=== PATIENT | male | born 1965 | race African-American/Black ===

== ENCOUNTER 2018-04-13 06:44 | Day surgery (SDC) | payer OTHER ==
[~2018-04-13 06:44] MED LIST: ACETAMINOPHEN 1,000 MG/100 ML BTL IV ONE; CEFAZOLIN 2 Gram 2 GM/50 ML BAG IVPB ONE
[2018-04-13] MEDS ORDERED: ROCURONIUM BROMIDE 50MG/5ML VIAL IV ONE (06:45)
[2018-04-13] MEDS ORDERED: DEXAMETHASONE 4 MG/ML 1ML VIAL IVP ONE (06:45)
[2018-04-13] MEDS ORDERED: BUPIVACAINE 0.5% W/EPI MPF 30 ML VIAL IVP ONE (06:45)
[2018-04-13] MEDS ORDERED: KETOROLAC 30 MG/ML VIAL IVP ONE (06:45)
[2018-04-13] MEDS ORDERED: SEVOFLURANE 250 ML INH ONE (06:45)
[2018-04-13] MEDS ORDERED: LIDOCAINE 2% MDV (20MG/ML) 20ML VIAL IV ONE (06:45)
[2018-04-13] MEDS ORDERED: PROPOFOL 10 MG/ML VIAL IV ONE (06:45)
[2018-04-13] MEDS ORDERED: HYDROCODONE/APAP 7.5/325MG TABLET PO ONE (06:45)
[2018-04-13] MEDS ORDERED: MIDAZOLAM HCL 2MG/2ML VIAL IV ONE (06:45)
[2018-04-13] MEDS ORDERED: MORPHINE SULFATE PF 10MG/10ML VIAL IV ONE (06:45)
[2018-04-13] MEDS ORDERED: FENTANYL PF 100MCG/2ML VIAL IV ONE (06:45)
[2018-04-13] MEDS ORDERED: BUPIVACAINE LIPOSOME/PF 133MG/10ML VIAL IV ONE (06:45)
[2018-04-13] MEDS ORDERED: ONDANSETRON HCL IV 4 MG/2 ML VIAL IVP ONE (06:45)
[2018-04-13] MEDS ORDERED: HYDROMORPHONE HCL 2 MG/ML VIAL IV ONE (06:45)
[2018-04-13] MEDS ORDERED: METHYLPREDNISOLONE 40MG/VIAL IM ONE (06:45)
[2018-04-13] MEDS ORDERED: SUCCINYLCHOLINE 20 MG/ML 10ML IVP ONE (06:45)
--- NOTE | 2018-04-13 12:25 | Operative Note ---
DATE OF SURGERY: 04/13/2018 PREOPERATIVE DIAGNOSIS: TORN ROTATOR CUFF ON THE LEFT WITH IMPINGEMENT. POSTOPERATIVE DIAGNOSES: 1. 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 2. SYNOVITIS OF THE LEFT SHOULDER. 3. SEVERE EXTERNAL IMPINGEMENT LEFT SHOULDER. 4. ARTHROSIS LEFT DISTAL CLAVICLE. PROCEDURE: 1. REPAIR OF A CHRONICALLY TORN ROTATOR CUFF TENDON, OPEN. 2. LEFT SHOULDER ARTHROSCOPY WITH SYNOVECTOMY. 3. LEFT SHOULDER OPEN ACROMIOPLASTY, CA LIGAMENT RESECTION, SUBACROMIAL BURSECTOMY. 4. LEFT SHOULDER DISTAL CLAVICLE RESECTION. STAFF SURGEON: MARY FLORES M.D. ANESTHESIA: GENERAL. PREPARATION: CHLORAPREP. INDIVIDUAL CONSIDERATIONS: NONE. PROCEDURE: The patient was taken to the Operating Room and placed supine on the operating table. He had a successful induction with general anesthetic. He was then placed in a semi-seated beach chair position and his left arm was prepped and draped in the usual fashion. Examination under anesthesia showed no instability. The patient had a posterior portal identified for arthroscopy. The skin was infiltrated with 0.5% Marcaine with Epinephrine prior. An #18 gauge spinal needle was then placed in the joint and the joint was inflated with normal saline with a 60 mL syringe. A stab wound was made and a blunt tip trocar for the scope was placed in the joint and the joint was inflated with normal saline. An anterior accessory portal was made just inferior to the intact long head of the biceps tendon in a retrograde fashion with a Wissinger santosh and the joint was irrigated out. The patient had synovitis basically underneath the biceps. This was debrided out. There was obvious tear of the supraspinatus and even extending into the infraspinatus. The glenohumeral joint was normal and no loose bodies were seen inferiorly. The long head was intact. The subscapularis was intact. After irrigation, the portals were closed with ryan. The patient had an anterior approach to the subacromial space and distal clavicle. The skin was again infiltrated with 0.5% Marcaine with Epinephrine prior. Sharp dissection carried down through the skin and subcutaneous tissues. Small veins were coagulated with a Bovie. An anterior deltoid interval was developed. Care was taken not to split the deltoid more than about 4 cm distal to the anterior tip of the acromion to prevent injury to the axillary nerve. Once in the subacromial space, there was a large conrad of fluid consistent with his tear. The patient had a downsloping acromion with spurs anteriorly and spurs at the AC joint. The deltoid was then detached anteriorly and subperiosteally off the anterior aspect of the acromion, over the top of the intact CA ligament, and off the anterior aspect of the degenerated distal clavicle. The CA ligament was resected with a Bovie. The distal clavicle was resected with an oscillating saw, taking about 1 cm. The patient had some of the worse bursitis I've ever seen. I just about pulled a handful of bursal tissue out with Metzenbaum scissors and now I had a good look at the rotator cuff. Basically, the lateral supraspinatus extending into the infraspinatus was torn measuring about 3 cm. It was easily mobilized but thin, but I was able to debride it back to good bleeding tendon. There were spurs at the insertion. These were cleared off with a rongeur and a bur and a trough was made with a bur. I then placed multiple retention sutures of #1 Ethibond into the end of the tendon and then put them through holes through the base of the trough and then ties distally. This gave an excellent repair. I put the shoulder now through a full range of motion and there was no further impingement. Prior to this, I did do an acromioplasty, taking about 1 cm, tapering to edge posteromedially on the acromion to include the spurs of the AC joint. After irrigation, the deltoid was then reattached to the remaining acromion with multiple interrupted #2 Vicryl going directly through the bony acromion. The periosteal cuff of the distal clavicle was closed with a running #2 Vicryl. The anterior deltoid interval was closed with a running #1 Vicryl. The subcu was closed with 2-0 Plus Vicryl and the skin was closed with staplesl. About 15 to 20 mL of 0.5% Marcaine with Epinephrine along with 10 mg of Morphine was injected into the subacromial space through a sterile #18 gauge needle and a sterile Bulkee compressive dressing and sling were applied. The patient tolerated the procedures well. Needle and sponge counts were correct, estimated blood loss was minimal, and he was taken back to Recovery in good condition. There were no complications. JOB NUMBER: [id number] MTDD
== END 2018-04-13 12:05 | disposition home or self-care (01) ==
LOC: SUR 06:44
PROVIDERS: ATTEND Orthopaedic Surgery
DX: M75.112 Incomplete rotator cuff tear or rupture of left shoulder, not specified as traumatic (principal); M75.42 Impingement syndrome of left shoulder; M65.812 Other synovitis and tenosynovitis, left shoulder; M19.012 Primary osteoarthritis, left shoulder; I10 Essential (primary) hypertension; J45.909 Unspecified asthma, uncomplicated
CPT/HCPCS: C9290; J0330; J1030; J1885; J2405